=== PATIENT | female | born 1985 | race American Indian/Alaskan Native ===

== ENCOUNTER 2022-06-24 17:05 | Outpatient (CLI) | payer SELFPAY ==
[2022-06-24] MEDS ORDERED: LACTATED RINGERS 500 ML IV ONE (18:28)
[2022-06-24 22:38] VITALS: BP 133/66
[2022-06-24] MEDS ORDERED: ACETAMINOPHEN 500 MG TAB PO ONE (23:02)
--- NOTE | 2022-06-24 23:55 | Ultrasound Report ---
LIMITED OBSTETRICAL ULTRASOUND INDICATION: cervical length, JAIME, EFW COMPARISON: None available FINDINGS: Single intrauterine is seen in a cephalic position. Cervical length measures 3.4 cm. Internal os appears closed and no definite cervical canal fluid is seen. Amniotic fluid volume ap pears appropriate and JAIME is within normal limits at 20.7 cm. cardiac activity was documented a t 146 bpm. No obvious anomalies are seen though this was not an anatomic survey. Dating shows estimated gestational age of 24 weeks 3 days with no discrepancy between head and body m easurements and good correlation with clinical dating. Estimated weight is 696 +/- 103 g in the 34th percentile. IMPRESSION: Normal-appearing 24 week 3 day intrauterine Signer Name: Karl Willams MD Signed: 06/24/2022 11:51 PM Workstation Name: [id number]
== END 2022-06-24 23:25 | disposition home or self-care (01) ==
LOC: TRG 17:05 → APU 17:07 → TRG 23:25
PROVIDERS: ATTEND Obstetrics & Gynecology
DX: O42.912 Preterm premature rupture of membranes, unspecified as to length of time between rupture and onset of labor, second trimester (principal); O26.892 Other specified pregnancy related conditions, second trimester; M79.89 Other specified soft tissue disorders; Z3A.24 24 weeks gestation of pregnancy
CPT/HCPCS: 36415; 76816; 76817; 82731; 84112

== ENCOUNTER 2022-07-08 05:49 | Outpatient (CLI) | payer MEDICAID ==
[2022-07-08] MEDS ORDERED: LACTATED RINGERS 1,000 ML IV ONE (06:15)
[2022-07-08 06:43] LABS: Color,Urine Straw (Yellow)
[2022-07-08 06:44] LABS: Bacteria,Urine 2+ /HPF (Negative); Mucus,Urine 1+ /HPF
[2022-07-08 06:56] LABS: Hematocrit 34.5 % (30.3-42.9); Hemoglobin 11.2 gm/dl (10.1-14.3); Mean Corpuscular HGB Conc 32 % (30-34); Mean Corpuscular Volume 84 fl (79-97); Platelet Count 242 K/mm3 (140-440); Red Cell Distribution Width 16.1 % (13.2-15.2)
--- NOTE | 2022-07-08 07:56 | Ultrasound Report ---
ULTRASOUND OBSTETRIC COMPLETE ULTRASOUND OB TRANSVAGINAL INDICATION / CLINICAL INFORMATION: efw, jaime, placenta r/o abruption,cervical length. well-being. Clinical Gestational Age (GA) in weeks.days: 26.4 TECHNIQUE: Transabdominal and Transvaginal. COMPARISON: None available. FINDINGS: NUMBER: Single PRESENTATION: breech PLACENTA: Left lateral, grade 1 and low lying. There appears to be a marginal placenta previa. The in ferior tip of the placenta is approximately 1 cm from the internal cervical os. No evidence for abrup tion. MATERNAL ADNEXA: No significant abnormality. AMNIOTIC FLUID VOLUME: increased AMNIOTIC FLUID INDEX (JAIME) in cm (if measured): 25.5 ANATOMY: anatomical survey was not performed. MEASUREMENTS: - Biparietal Diameter = 6.7 cm = 27.1 weeks.days - Head Circumference = 24.0 cm = 26.1 weeks.days - Abdominal Circumference = 19.5 cm = 24.1 weeks.days - Femur Length = 4.3 cm = 24.1 weeks.days - Estimated Weight (in grams, if calculated): 702 - Heart Rate (beats per minute): 130 ADDITIONAL FINDINGS: The cervix is closed and measures 3.5 cm in length. PERCENTILE ESTIMATED WEIGHT (if calculated): 1 AVERAGE ULTRASOUND AGE (AUA) in weeks.days = 25.3 IMPRESSION: 1. Single intrauterine with AUA of 25.3 weeks.days 2. A marginal placenta previa is identified as described. 3. Polyhydramnios. JAIME measures 25.5 cm. Signer Name: Neeraj Ortega Jr, MD Signed: 07/08/2022 7:52 AM Workstation Name: [id number]
[2022-07-08 08:17] VITALS: BP 160/82
== END 2022-07-08 08:43 | disposition home or self-care (01) ==
LOC: TRG 05:49 → APU 05:52 → TRG 08:43
PROVIDERS: ATTEND Obstetrics & Gynecology Gynecology
DX: O44.22 Partial placenta previa NOS or without hemorrhage, second trimester (principal); O40.2XX0 Polyhydramnios, second trimester, not applicable or unspecified; O32.1XX0 Maternal care for breech presentation, not applicable or unspecified; Z3A.25 25 weeks gestation of pregnancy
CPT/HCPCS: 36415; 59025; 76816; 76817; 81001; 85027; 86850; 86900; 86901; 87086; 96360